=== PATIENT | male | born 1995 | race Caucasian/White ===

== ENCOUNTER 2017-02-13 01:43 | Emergency (ER) | payer OTHER ==
[~2017-02-13] VITALS: Ht 182.9 cm; Wt 95.0 kg
[2017-02-13 01:56] VITALS: BP 147/73; PULSE 89; RESP 16; TEMP 98.5; O2SAT 99
--- NOTE | 2017-02-13 02:10 | PD ---
HPI Chief Complaint: Alcohol/Drug Intoxication Time Seen by Provider: 01:58 Travel History International Travel<30 days: No Contact w/Intl Traveler<30days: No Traveled to known affect area: No History of Present Illness HPI 21-year-old white male presents to emergency department by EMS for evaluation of alcohol intoxication. The patient is heavily intoxicated. He states that he is visiting from [place]. He is here staying at his mother's house. He had gone out drinking with friends this evening. His mother is a dialysis nurse at [facility] [employer]. Patient has vomited on himself. Patient denies any trauma. [facility] Past Medical History Medical History: Unable to Obtain Past Surgical History Surgical History: Unable to Obtain Social History Alcohol Use: Yes Tobacco Use: No Substance Use: No Allergies-Medications (Allergen,Severity, Reaction): Coded Allergies: No Known Allergies (Unverified , 02/13/17) Reported Meds & Prescriptions Reported Meds & Active Scripts Active Active Prescriptions or Reported Medications Unobtainable Review of Systems ROS Limitations: Intoxication Physical Exam Narrative GENERAL: This is a well-nourished, well-developed patient, in no apparent distress. Patient is intoxicated. His speech is slurred. He has recently vomited on himself. The patient is handling his secretions. He has an intact gag. Patient is placed on the EKG and sat monitor. There is no evidence of trauma. SKIN: No rashes, ecchymoses or lesions. Warm and dry. HEAD: Atraumatic. Normocephalic. EYES: PERRL, EOMI, no discharge or injection. No scleral icterus. EARS: Clear NOSE: Nasal turbinates appear normal. THROAT: Mucosa pink and moist. Airway patent. NECK: Trachea midline. supple, moves head freely. LUNGS: Clear to auscultation. CV: Regular in rhythm. ABDOMEN: Soft nontender. EXT: No clubbing cyanosis or edema. Data Data Last Documented VS Vital Signs Date Time Temp Pulse Resp B/P (MAP) Pulse Ox O2 Delivery O2 Flow Rate FiO2 02/13/17 02:00 97 Room Air 02/13/17 01:56 98.5 89 16 147/73 (97) Orders Orders Ondansetron Inj (Zofran Inj) (02/13/17 02:30) Sodium Chlor 0.9% 1000 Ml Inj (Ns 1000 M (02/13/17 03:00) MDM Medical Decision Making Medical Screen Exam Complete: Yes Emergency Medical Condition: Yes Medical Record Reviewed: Yes Differential Diagnosis Differential diagnoses: Alcohol intoxication, substance abuse, electrolyte abnormality, malingering Narrative Course IV access is obtained. Patient was given a liter bolus of saline. We have contacted the patient's mother with the assistance of the patient using his cell phone. I have requested that the mother come to the ER to assume the care of the patient. She has verbally stated agreement and will be on her way to the ER. The mother is here at bedside. I discussed the patient's clinical findings. She is aware that he is heavily intoxicated. He had recently vomited and being given Zofran 4 mg IV. He will be given a second liter of fluids. We will monitor him here in the ER for additional one hour and at that time he'll be considered stable to be discharged to his mother and father. Mother is a dialysis nurse and his father is also a nurse at [facility]. This is alcohol intoxication Diagnosis Primary Impression: Alcohol intoxication Qualified Codes: F10.920 - Alcohol use, unspecified with intoxication, uncomplicated Patient Instructions: General Instructions Additional Instructions: Rest. Increase fluids. Avoid alcohol. Avoid illegal substances. Do not operate a car or any heavy machinery under the influence of alcohol or drugs. Follow-up with a medical doctor this week. Return to the ER for emergencies Med/Other Pt SpecificInfo: No Meds Exist/No RX given Scripts Unable to Obtain Active Prescriptions or Reported Meds Disposition: 01 DISCHARGE HOME Condition: Stable Carson Lopez Feb 13, 2017 02:10
[2017-02-13] MEDS ORDERED: ONDANSETRON HCL 4 MG/2 ML VIAL IV PUSH ONE (02:30)
[2017-02-13] MEDS ORDERED: SODIUM CHLOR 0.9% 1000 ML INJ 1,000 ML IV ONE (03:00)
== END 2017-02-13 04:07 | disposition home or self-care (01) ==
LOC: NEPD 01:43
DX: F10.920 Alcohol use, unspecified with intoxication, uncomplicated (principal)
CPT/HCPCS: 96374; 99284; J2405; J7030